=== PATIENT | male | born 1965 | race Caucasian/White ===

== ENCOUNTER 2019-07-24 17:07 | Emergency (ER) | payer OTHER ==
[~2019-07-24] VITALS: Ht 195.6 cm; Wt 108.0 kg
[2019-07-24 17:18] VITALS: BP 152/89
--- NOTE | 2019-07-24 18:24 | NUR ---
PT HAS CO OF NECK PAIN FROM BOXES FALLING ON HIM AT WORK. PT IN C COLLAR. OFF TO IMAGING
== END 2019-07-24 18:59 | disposition home or self-care (01) ==
LOC: ED 18:53
DX: S00.33XA Contusion of nose, initial encounter (principal); S09.90XA Unspecified injury of head, initial encounter; F17.200 Nicotine dependence, unspecified, uncomplicated; X58.XXXA Exposure to other specified factors, initial encounter; Y93.89 Activity, other specified; Y92.69 Other specified industrial and construction area as the place of occurrence of the external cause; Y99.8 Other external cause status
CPT/HCPCS: 70450; 70486; 72125; 99284